=== PATIENT | female | born 1965 | race African-American/Black ===

== ENCOUNTER 2018-01-14 00:37 | Emergency (ER) | payer MEDICAID ==
[~2018-01-14] VITALS: Ht 165.1 cm; Wt 79.4 kg
--- NOTE | 2018-01-14 00:37 | NUR ---
BIB [facility]
[2018-01-14 00:42] VITALS: BP 147/95
--- NOTE | 2018-01-14 00:45 | NUR ---
PT BIB [facility] TO ED FOR PRE-BOOK. PER PD; PT. GOT HIT AT HEAD, NO LOC, NO APPARENT INJURY. PT. STATES FEELING HAVING SEIZURE. HX. HTN, ASTHMA, REUMATOID ARTHRITIS, SEIZURE. DENIES N/V/D; SKIN IS PINK/WARM/DRY; AAOX4 WITH EVEN AND STEADY GAIT; LUNGS CLEAR BL; HR EVEN AND REGULAR; PT DENIES ANY FEVER, CP, SOB, OR COUGH AT THIS TIME; PATIENT STATES PAIN OF 9/10 AT THIS TIME; PATIENT POSITIONED FOR COMFORT; HOB ELEVATED; BEDRAILS UP X2; BED DOWN. ER MD MADE AWARE OF PT STATUS.
--- NOTE | 2018-01-14 00:57 | NUR ---
PT EVAL BY JEANNE RYAN WITH [facility] AT SIDE
[2018-01-14] MEDS ORDERED: ONDANSETRON 4 MG/2 ML VIAL IVP ONE (01:00)
[2018-01-14] MEDS ORDERED: NACL 0.9% 1,000 ML IV ONE (01:00)
--- NOTE | 2018-01-14 01:04 | NUR ---
PT AMB W/O ASST TO LAB CHAIR FOR BLOOD DRAW WITH [facility] AT SIDE.
--- NOTE | 2018-01-14 01:18 | NUR ---
PT SENT TO CT WITH TECH VIA BED.
[2018-01-14 01:21] LABS: WHITE BLOOD COUNT (AUTO) 11.1 K/uL (4.8-10.8)
[2018-01-14 01:22] LABS: ANION GAP 15.9 (8-16); CREATININE 0.9 mg/dL (0.6-1.3); HEMATOCRIT 40.6 % (36-48); HEMOGLOBIN 13.7 g/dL (12.0-16.0); MEAN CORPUSCULAR HEMOGLOBIN 30 pg (27-31); MEAN CORPUSCULAR HGB CONC 34 g/dL (33-37); MEAN CORPUSCULAR VOLUME 90 fL (80-94); PLATELET COUNT (AUTO) 410 K/uL (140-450); POTASSIUM 3.9 mmol/L (3.5-5.1); RED BLOOD CELL COUNT(AUTO) 4.53 MIL/uL (4.20-5.40); RED CELL DISTRIBUTION WIDTH 13.5 % (11.6-13.7)
[2018-01-14 01:23] LABS: BASOPHILS # (AUTO) 0.1 K/uL (0.00-0.22); BASOPHILS % (AUTO) 0.7 % (0.0-2.0); EOSINOPHILS # (AUTO) 0.1 K/uL (0-0.4); EOSINOPHILS % (AUTO) 0.6 % (0.0-4.0); LYMPHOCYTES # (AUTO) 2.5 K/uL (2.5-16.5); LYMPHOCYTES % (AUTO) 22.4 % (20.5-51.1); MONOCYTES # (AUTO) 0.5 K/uL (0.8-1.0); MONOCYTES % (AUTO) 4.2 % (1.7-9.3); NEUTROPHILS % (AUTO) 72.1 % (42.2-75.2)
[2018-01-14 01:28] LABS: ALBUMIN 3.8 g/dL (3.4-5.0); TOTAL BILIRUBIN 0.5 mg/dL (0.0-1.0)
[2018-01-14 02:30] VITALS: BP 120/73
--- NOTE | 2018-01-14 02:30 | NUR ---
Patient discharged with v/s stable. Written and verbal after care instructions given and explained. Patient verbalized understanding. Police with in custody. All questions addressed prior to discharge. Advised to follow up with PMD.
== END 2018-01-14 02:30 ==
LOC: MED 00:37
DX: Z02.89 Encounter for other administrative examinations (principal); Z86.73 Personal history of transient ischemic attack (TIA), and cerebral infarction without residual deficits; I10 Essential (primary) hypertension; Z88.0 Allergy status to penicillin
CPT/HCPCS: 36415; 70450; 80053; 81025; 85025; 96361; 96374; 99285; J2405; J7030